=== PATIENT | male | born 1970 | race Caucasian/White ===

== ENCOUNTER 2017-07-19 09:02 | Emergency (ER) | payer OTHER ==
[2017-07-19 09:23] VITALS: RESP 18
[2017-07-19] MEDS ORDERED: SODIUM CHLORIDE 0.9% 500 ML IV STA (09:33)
--- NOTE | 2017-07-19 09:44 | ED ---
Abdominal Pain HPI - General Chief Complaint: Abdominal Pain Stated Complaint: RUQ PAIN Time Seen by Provider: 07/19/17 09:25 Source: patient, RN notes reviewed Mode of arrival: ambulatory Limitations: no limitations - History of Present Illness Initial Comments: 47-year-old male presents emergency department to complaint of right quadrant abdominal pain. Patient states pain started a few days ago has been intermittent started feeling better but states that he ate a chicken salad last night and the pain worsened. Patient states that is from his right upper quadrant to his right flank region. He has no history kidney stones no prior gallbladder disease. Patient does admit to alcohol drinking. Patient denies fever, chills. No dysuria no hematuria no melena med she is a. - Related Data Previous Rx's Medication Instructions Recorded Acetaminophen-Codeine 300-30mg 1 tab PO Q4H PRN #20 tablet 07/19/17 [Tylenol #3] Allergies Allergy/AdvReac Type Severity Reaction Status Date / Time Penicillins Allergy Rash/Hives Verified 07/19/17 09:58 Review of Systems ROS Statement: Those systems with pertinent positive or pertinent negative responses have been documented in the HPI. ROS Other: All systems not noted in ROS Statement are negative. Past Medical History Past Medical History: No Reported History History of Any Multi-Drug Resistant Organisms: None Reported Past Surgical History: Appendectomy Past Psychological History: No Psychological Hx Reported Smoking Status: Current every day smoker Past Alcohol Use History: Daily Past Drug Use History: None Reported General Exam Limitations: no limitations General appearance: alert, in no apparent distress Head exam: Present: atraumatic, normocephalic, normal inspection Eye exam: Present: normal appearance, PERRL, EOMI. Absent: scleral icterus, conjunctival injection, periorbital swelling Respiratory exam: Present: normal lung sounds bilaterally. Absent: respiratory distress, wheezes, rales, rhonchi, stridor Cardiovascular Exam: Present: regular rate, normal rhythm, normal heart sounds. Absent: systolic murmur, diastolic murmur, rubs, gallop, clicks GI/Abdominal exam: Present: soft, tenderness (Mild tenderness right upper quadrant), normal bowel sounds. Absent: distended, guarding, rebound, rigid Back exam: Absent: CVA tenderness (R), CVA tenderness (L) Course Vital Signs 07/19/17 09:20 Temperature 98.2 F Pulse Rate 75 Respiratory 18 Rate Blood Pressure 158/96 O2 Sat by Pulse 98 Oximetry Medical Decision Making - Medical Decision Making 47-year-old male present emergency department for right upper quadrant pain. Patient's been having some pain after eating certain foods. Patient's lab work , ultrasound unremarkable. Patient may be some biliary dyskinesia. Patient will follow palpation with surgeon for her scan return parameters were discussed. - Lab Data Result diagrams: 07/19/17 10:00 07/19/17 10:00 Lab Results 07/19/17 07/19/17 07/19/17 Range/Units 10:00 10:00 10:00 WBC 6.8 (3.8-10.6) k/uL RBC 5.43 (4.30-5.90) m/uL Hgb 17.4 (13.0-17.5) gm/dL Hct 47.7 (39.0-53.0) % MCV 87.9 (80.0-100.0) fL MCH 32.0 (25.0-35.0) pg MCHC 36.4 (31.0-37.0) g/dL RDW 12.7 (11.5-15.5) % Plt Count 212 (150-450) k/uL Neutrophils % 69 % Lymphocytes % 17 % Monocytes % 7 % Eosinophils % 4 % Basophils % 1 % Neutrophils # 4.7 (1.3-7.7) k/uL Lymphocytes # 1.2 (1.0-4.8) k/uL Monocytes # 0.5 (0-1.0) k/uL Eosinophils # 0.3 (0-0.7) k/uL Basophils # 0.1 (0-0.2) k/uL Sodium 143 (137-145) mmol/L Potassium 4.5 (3.5-5.1) mmol/L Chloride 103 (98-107) mmol/L Carbon Dioxide 26 (22-30) mmol/L Anion Gap 14 mmol/L BUN 20 (9-20) mg/dL Creatinine 0.82 (0.66-1.25) mg/dL Est GFR (CKD-EPI)AfAm >90 (>60 ml/min/1.73 sqM) Est GFR (CKD-EPI)NonAf >90 (>60 ml/min/1.73 sqM) Glucose 88 (74-99) mg/dL Calcium 9.7 (8.4-10.2) mg/dL Total Bilirubin 0.6 (0.2-1.3) mg/dL AST 43 (17-59) U/L ALT 77 H (21-72) U/L Alkaline Phosphatase 102 (38-126) U/L Total Protein 7.4 (6.3-8.2) g/dL Albumin 4.4 (3.5-5.0) g/dL Amylase 61 (30-110) U/L Lipase 107 (23-300) U/L Urine Color Yellow Urine Appearance Clear (Clear) Urine pH 5.5 (5.0-8.0) Ur Specific [place] 1.008 (1.001-1.035) Urine Protein Negative (Negative) Urine Glucose (UA) Negative (Negative) Urine Ketones Negative (Negative) Urine Blood Trace H (Negative) Urine Nitrite Negative (Negative) Urine Bilirubin Negative (Negative) Urine Urobilinogen <2.0 (<2.0) mg/dL Ur Leukocyte Esterase Negative (Negative) Urine RBC <1 (0-5) /hpf Urine WBC <1 (0-5) /hpf Urine Mucus Rare H (None) /hpf Disposition Clinical Impression: Right upper quadrant abdominal pain Disposition: HOME SELF-CARE Condition: Stable Instructions: Abdominal Pain (ED) Additional Instructions: Follow up outpatient for HIDA scan.Please return to the Emergency Department if symptoms worsen or any other concerns. Prescriptions: Acetaminophen-Codeine 300-30mg [Tylenol #3] 1 tab PO Q4H PRN #20 tablet PRN Reason: pain Referrals: Chemo Segura Jr, DO [Primary Care Provider] - 1-2 days Pranay Garcia MD [STAFF PHYSICIAN] - 1-2 days Time of Disposition: 11:24
[2017-07-19 10:15] LABS: Basophils # (A) 0.1 k/uL (0-0.2); Basophils % (A) 1 %; Eosinophils # (A) 0.3 k/uL (0-0.7); Eosinophils % (A) 4 %; HCT 47.7 % (39.0-53.0); HGB 17.4 gm/dL (13.0-17.5); Lymphocytes # (A) 1.2 k/uL (1.0-4.8); Lymphocytes % (A) 17 %; MCHC 36.4 g/dL (31.0-37.0); MCV 87.9 fL (80.0-100.0); Mean Platelet Volume 7.3; Monocytes # (A) 0.5 k/uL (0-1.0); Monocytes % (A) 7 %; Neutrophils # (A) 4.7 k/uL (1.3-7.7); Neutrophils % (A) 69 %; Platelet Count 212 k/uL (150-450); RBC 5.43 m/uL (4.30-5.90); RDW 12.7 % (11.5-15.5); WBC 6.8 k/uL (3.8-10.6)
[2017-07-19 10:26] LABS: ALT 77 U/L (21-72); AST 43 U/L (17-59); Albumin 4.4 g/dL (3.5-5.0); Alkaline Phosphatase 102 U/L (38-126); Amylase 61 U/L (30-110); Anion Gap 14 mmol/L; Blood Urea Nitrogen 20 mg/dL (9-20); Calcium 9.7 mg/dL (8.4-10.2); Carbon Dioxide 26 mmol/L (22-30); Chloride 103 mmol/L (98-107); Glucose 88 mg/dL (74-99); Lipase 107 U/L (23-300); Potassium 4.5 mmol/L (3.5-5.1); Sodium 143 mmol/L (137-145); Total Bilirubin 0.6 mg/dL (0.2-1.3); Total Protein 7.4 g/dL (6.3-8.2)
[2017-07-19 10:31] LABS: Appearance,Urine Clear (Clear); Bilirubin,Urine Negative (Negative); Blood,Urine Trace (Negative); Color,Urine Yellow; Glucose,Urine (UA) Negative (Negative); Ketones,Urine Negative (Negative); Leukocyte Esterase,Urine Negative (Negative); Mucus,Urine Rare /hpf; Nitrite,Urine Negative (Negative); PH, Urine 5.5 (5.0-8.0); Protein,Urine Negative (Negative); RBC,Urine <1 /hpf (0-5); Specific Gravity,Urine 1.008 (1.001-1.035); Urobilinogen,Urine <2.0 mg/dL (<2.0); WBC,Urine <1 /hpf (0-5)
--- NOTE | 2017-07-19 11:19 | US ---
EXAMINATION TYPE: US abdomen limited DATE OF EXAM: 07/19/2017 COMPARISON: NONE CLINICAL HISTORY: Pain. RUQ Pain. Patient states being NPO EXAM MEASUREMENTS: Liver Length: 18.0 cm Gallbladder Wall: 0.2 cm CHD: 0.4 cm Right Kidney: 10.2 x 5.3 x 5.8 cm Limited exam due to overlying bowel gas Pancreas: Obscured by bowel gas Liver: Appears enlarged in size. Appears heterogenous and slightly echogenic. Gallbladder: wnl Evidence for sonographic Lamb's sign: wnl CBD: Obscured by overlying bowel gas CHD: wnl Right Kidney: wnl Pancreas is obscured by overlying bowel gas on initial images. Liver is heterogeneously hyperechoic. No worrisome intrahepatic ductal dilatation is seen. Finding likely on basis of diffuse fatty infiltr ation. Evaluation for focal masses suboptimal due to the heterogeneity. IMPRESSION: No gallstones or ultrasound evidence for acute cholecystitis. Probable fatty infiltration of liver noted.
[2017-07-19 12:02] VITALS: BP 146/82; PULSE 65; TEMP 97
== END 2017-07-19 12:02 | disposition home or self-care (01) ==
LOC: EC 09:02
DX: R10.11 Right upper quadrant pain (principal); F17.200 Nicotine dependence, unspecified, uncomplicated; Z88.0 Allergy status to penicillin; Z90.49 Acquired absence of other specified parts of digestive tract
CPT/HCPCS: 36415; 76705; 80053; 81001; 82150; 83690; 85025; 96360; 96361; 99284

== ENCOUNTER 2023-11-20 18:27 | Emergency (ER) | payer BC, OTHER ==
[2023-11-20] MEDS: HYDROmorphone 0.5 MG/0.5 ML SYRINGE IM STA (19:02)
--- NOTE | 2023-11-20 19:05 | XR ---
EXAMINATION TYPE: XR wrist complete RT DATE OF EXAM: 11/20/2023 6:59 PM CLINICAL INDICATION:Male, 53 years old with history of FOOSH; PHH COMPARISON: TECHNIQUE: XR wrist complete RT; examined in the Frontal, navicular, lateral, and oblique. FINDINGS: The distal radial metaphysis dorsally elation fractures. Displaced ulnar styloid process fr acture. So-called Colles' fracture. Joint dislocation, or joint effusion. No evidence of any soft ti ssue swelling is seen. IMPRESSION: Colles' fracture distal radius and ulna styloid process
[2023-11-20] MEDS: KETOROLAC 15 MG/ML 1 ML VIAL IM STA (19:22)
[2023-11-20] MEDS: IBUPROFEN 800 MG TAB PO STA (19:27)
--- NOTE | 2023-11-20 20:32 | ED ---
Upper Extremity HPI - General Chief Complaint: Extremity Injury, Upper Stated Complaint: Possible broken rt wrist Time Seen by Provider: 11/20/23 18:31 Source: patient Mode of arrival: ambulatory Limitations: no limitations - History of Present Illness Initial Comments: 53-year-old male presenting with chief complaint of right wrist pain. Pain started after a fall. Limited range of motion. No loss of sensation. Patient is able to move the fingers however it is painful. - Related Data Previous Rx's Medication Instructions Recorded Acetaminophen-Codeine 300-30mg 1 tab PO Q4H PRN #20 tablet 07/19/17 [Tylenol #3] Hydrocodone/Acetaminophen 1 tab PO Q8H 3 Days #9 tab 11/20/23 [Hydrocodone/Acetaminophen 7.5-325] HYDROcodone/APAP 7.5-325MG [[place] 1 tab PO Q6HR PRN 3 Days #12 tab 11/21/23 7.5-325] Allergies Allergy/AdvReac Type Severity Reaction Status Date / Time Penicillins Allergy Rash/Hives Verified 11/20/23 18:31 Review of Systems ROS Statement: Those systems with pertinent positive or pertinent negative responses have been documented in the HPI. ROS Other: All systems not noted in ROS Statement are negative. Past Medical History Past Medical History: Hypertension History of Any Multi-Drug Resistant Organisms: None Reported Past Surgical History: Appendectomy Past Psychological History: No Psychological Hx Reported Smoking Status: Former smoker Past Alcohol Use History: Daily Past Drug Use History: None Reported General Exam Limitations: no limitations General appearance: alert, in no apparent distress Head exam: Present: atraumatic, normocephalic Eye exam: Present: normal appearance Neck exam: Present: normal inspection Respiratory exam: Absent: respiratory distress Cardiovascular Exam: Present: regular rate Right Forearm Wrist exam: Present: tenderness, swelling. Absent: full ROM Vascular: Absent: vascular compromise Neurological exam: Present: alert, oriented X3 Psychiatric exam: Present: normal affect, normal mood Course Vital Signs 11/20/23 11/20/23 11/20/23 18:28 19:28 20:39 Temperature 97.8 F 98.7 F Pulse Rate 63 65 Respiratory 18 16 18 Rate Blood Pressure 146/91 120/75 144/85 O2 Sat by Pulse 97 97 99 Oximetry Medical Decision Making - Medical Decision Making Was pt. sent in by a medical professional or institution (Dr., PA, TOPOLOGY PROFESSOR, urgent care, hospital, or [facility]...) When possible be specific @ -No Did you speak to anyone other than the patient for history (EMS, parent, family, police, friend...)? What history was obtained from this source @ -No Did you review nursing and triage notes (agree or disagree)? Why? @ -I reviewed and agree with nursing and triage notes Were old charts reviewed (outside hosp., previous admission, EMS record, old EKG, old radiological studies, urgent care reports/EKG's, [facility] records)? Report findings @ -No old charts were reviewed Differential Diagnosis (chest pain, altered mental status, abdominal pain women, abdominal pain men, vaginal bleeding, weakness, fever, dyspnea, syncope, headache, dizziness, GI bleed, back pain, seizure, CVA, palpatations, mental health, musculoskeletal)? @ -Differential includes fracture, dislocation, sprain, strain, this is not an all-inclusive list EKG interpreted by me (3pts min.). @ -As above X-rays interpreted by me (1pt min.). @ -X-ray shows Colles' fracture distal radius and ulnar styloid process CT interpreted by me (1pt min.). @ -None done U/S interpreted by me (1pt. min.). @ -None done What testing was considered but not performed or refused? (CT, X-rays, U/S, labs)? Why? @ -None What meds were considered but not given or refused? Why? @ -None Did you discuss the management of the patient with other professionals (professionals i.e. SHERIN Robb, TOPOLOGY PROFESSOR, lab, RT, psych nurse, social media marketing specialist, corporate associate attorney, teacher, credit control officer, family preservation caseworker)? Give summary @ -No Was smoking cessation discussed for >3mins.? @ -No Was critical care preformed (if so, how long)? @ -No Were there social determinants of health that impacted care today? How? (Homelessness, low income, unemployed, alcoholism, drug addiction, transportation, low edu. Level, literacy, decrease access to med. care, penitentiary, rehab)? @ -No Was there de-escalation of care discussed even if they declined (Discuss DNR or withdrawal of care, Hospice)? DNR status @ -No What co-morbidities impacted this encounter? (DM, HTN, Smoking, COPD, CAD, Cancer, CVA, ARF, Chemo, Hep., AIDS, mental health diagnosis, sleep apnea, morbid obesity)? @ -None Was patient admitted / discharged? Hospital course, mention meds given and route, prescriptions, significant lab abnormalities, going to OR and other pertinent info. @ -53-year-old male present with chief complaint of right wrist pain. X-rays positive for Colles' fracture as well as fracture of the ulna styloid process. Patient is placed in a sugar-tong splint and will follow-up with orthopedics. He is neurovascularly intact. Follow-up with PCP. Report back to ER with any new or worsening symptoms. Discussed return parameters and answered all questions. Patient conveyed verbal understanding and agreed to the plan. I discussed this case in detail with my attending Dr. Keith Undiagnosed new problem with uncertain prognosis? @ -No Drug Therapy requiring intensive monitoring for toxicity (Heparin, Nitro, Insulin, Cardizem)? @ -No Were any procedures done? @ -Splint applied Diagnosis/symptom? @ -Colles' fracture Acute, or Chronic, or Acute on Chronic? @ -Acute Uncomplicated (without systemic symptoms) or Complicated (systemic symptoms)? @ -Uncomplicated Side effects of treatment? @ -No Exacerbation, Progression, or Severe Exacerbation? @ -No Poses a threat to life or bodily function? How? (Chest pain, [place], [place], pneumonia, PE, COPD, DKA, ARF, appy, cholecystitis, CVA, Diverticulitis, Homicidal, Suicidal, threat to staff... and all critical care pts) @ -No Disposition Clinical Impression: Colles' fracture Disposition: HOME SELF-CARE Condition: Good Instructions (If sedation given, give patient instructions): Wrist Fracture in Adults (ED) Additional Instructions: Follow-up with orthopedics. Report back to ER with any new or worsening symptoms. Prescriptions: Hydrocodone/Acetaminophen [Hydrocodone/Acetaminophen 7.5-325] 1 tab PO Q8H 3 Days #9 tab HYDROcodone/APAP 7.5-325MG [[place] 7.5-325] 1 tab PO Q6HR PRN 3 Days #12 tab PRN Reason: Pain Is patient prescribed a controlled substance at d/c from ED?: Yes When asked, does pt state using other controlled substances?: No If prescribed controlled substance>3 days was MAPS reviewed?: Prescribed <3 Days If opioid is for acute pain is fill amount 7 days or less?: Yes Referrals: Chemo Segura Jr, [Primary Care Provider] - 1-2 days Time of Disposition: 20:32
[2023-11-20] MEDS: ACET/COD 300 MG/30 MG STARTER PACK 6 TAB BTL PO STA (20:36)
[2023-11-20] MEDS: ONDANSETRON 4 MG ODT STARTER PACK 2 TAB BTL PO STA (20:37)
[2023-11-20 20:40] VITALS: BP 144/85; PULSE 65; RESP 18; TEMP 98.7
== END 2023-11-20 20:40 | disposition home or self-care (01) ==
LOC: EC 18:27
DX: S52.531A Colles' fracture of right radius, initial encounter for closed fracture (principal); S52.611A Displaced fracture of right ulna styloid process, initial encounter for closed fracture; Z88.0 Allergy status to penicillin; Z87.891 Personal history of nicotine dependence; W19.XXXA Unspecified fall, initial encounter
CPT/HCPCS: 73110; 29125; 99283; 96372; S0119; J1170

== ENCOUNTER → 2023-11-23 | Outpatient (CLI) | payer BC ==
--- NOTE | 2023-11-23 16:04 | CT ---
EXAMINATION TYPE: CT wrist RT wo con DATE OF EXAM: 11/23/2023 COMPARISON: Radiographs 11/20/2023 HISTORY: 53-year-old male FOOSH injury, pain, Pre-surgical planning TECHNIQUE: Contiguous axial scanning of the right wrist without IV contrast. Coronal and sagittal rec onstructions performed. 3-D reconstructions generated on a dedicated independent workstation. CT DLP: 111.2 mGycm Automated exposure control for dose reduction was used. FINDINGS: There is a comminuted and impacted fracture of the distal radial metaphysis and epiphysis with overal l slight dorsal angulation. Impaction measuring up to 7 mm. The radial styloid process fracture fragm ent shows radial displacement of the 4 mm. Fracture extends into the radiocarpal joint and distal rad ial ulnar joint. There is a 3 mm step-off at the distal radioulnar joint but no significant step-off at the wrist joint. However, the mild regional displacement results in disruption of the articular murphy rface measuring 5 mm AP and 1.5 cm wide (sagittal image 36 and coronal image 31). Displaced fracture fragment of the ulnar styloid process also noted. Generalized soft tissue swelling. Overlying fiberglass cast. IMPRESSION: 1. COMMINUTED FRACTURED DISTAL RADIAL METAPHYSIS AND EPIPHYSIS WITH OVERALL SLIGHT DORSAL ANGULATION AND IMPACTION MEASURING UP TO 7 MM. 2. INTRA-ARTICULAR EXTENSION INTO THE RADIOCARPAL JOINT AND ALSO INTO THE DISTAL RADIOULNAR JOINT WHE RE THERE IS A 3 MM ARTICULAR SURFACE STEP-OFF. 3. THE MILD RESIDUAL DISPLACEMENT RESULTS IN DISRUPTION OF THE RADIAL ARTICULAR SURFACE MEASURING 5 M M AP AND 1.5 CM WIDE (SAGITTAL IMAGE 36 AND CORONAL IMAGE 31). 4. DISPLACED FRACTURE FRAGMENT OF THE ULNAR STYLOID PROCESS.
== END | disposition home or self-care (01) ==
LOC: RADCTMAIN 15:24
PROVIDERS: ATTEND Orthopaedic Surgery Hand Surgery
DX: S52.571A Other intraarticular fracture of lower end of right radius, initial encounter for closed fracture (principal); S52.611A Displaced fracture of right ulna styloid process, initial encounter for closed fracture; Z01.818 Encounter for other preprocedural examination

== ENCOUNTER 2024-05-13 13:50 | Emergency (ER) | payer BC ==
--- NOTE | 2024-05-13 14:14 | ED ---
Lower Extremity Injury HPI - General Chief Complaint: Extremity Injury, Lower Stated Complaint: L LOWER LEG INJ Time Seen by Provider: 05/13/24 13:55 Source: patient, RN notes reviewed Mode of arrival: ambulatory Limitations: no limitations - History of Present Illness Initial Comments: This is a 53-year-old male who presents to the emergency department for a left leg injury. Patient hit his left leg on a shopping cart earlier today, causing a wound to his left pena. States that he wanted to see if he needed an x-ray. He does have a small abrasion. States that his tetanus vaccine is up-to-date. Pain is controlled and he denies any difficulty with ambulation. - Related Data Previous Rx's Medication Instructions Recorded Acetaminophen-Codeine 300-30mg 1 tab PO Q4H PRN #20 tablet 07/19/17 [Tylenol #3] Hydrocodone/Acetaminophen 1 tab PO Q8H 3 Days #9 tab 11/20/23 [Hydrocodone/Acetaminophen 7.5-325] HYDROcodone/APAP 7.5-325MG [[place] 1 tab PO Q6HR PRN 3 Days #12 tab 11/21/23 7.5-325] Allergies Allergy/AdvReac Type Severity Reaction Status Date / Time Penicillins Allergy Rash/Hives Verified 11/20/23 18:31 Review of Systems ROS Statement: Those systems with pertinent positive or pertinent negative responses have been documented in the HPI. ROS Other: All systems not noted in ROS Statement are negative. Past Medical History Past Medical History: Hypertension History of Any Multi-Drug Resistant Organisms: None Reported Past Surgical History: Appendectomy, Orthopedic Surgery Past Psychological History: No Psychological Hx Reported Smoking Status: Former smoker Past Alcohol Use History: Daily Past Drug Use History: None Reported General Exam Limitations: no limitations General appearance: alert, in no apparent distress Head exam: Present: atraumatic, normocephalic, normal inspection Respiratory exam: Present: normal lung sounds bilaterally. Absent: respiratory distress, wheezes, rales, rhonchi, stridor Cardiovascular Exam: Present: regular rate, normal rhythm, normal heart sounds. Absent: systolic murmur, diastolic murmur, rubs, gallop, clicks Extremities exam: Present: other (Superficial abrasion over the left pena. No active bleeding) Neurological exam: Present: alert, oriented X3, CN II-XII intact Psychiatric exam: Present: normal affect, normal mood Course Vital Signs 05/13/24 05/13/24 13:52 15:21 Temperature 97.9 F 98.1 F Pulse Rate 89 76 Respiratory 16 18 Rate Blood Pressure 160/102 156/90 O2 Sat by Pulse 96 97 Oximetry Medical Decision Making - Medical Decision Making This is a 53 year old male who presents to the emergency department for a left leg injury. Was pt. sent in by a medical professional or institution? @ -No Did you speak to anyone other than the patient for history? @ -No Did you review nursing and triage notes? @ -Yes, and I agree, it is accurate with regards to the patient's symptoms. Were old charts reviewed? @ -No Differential Diagnosis? @ -Differential Musculoskeletal Muscular strain, contusion, ligament sprain, fracture, arthritis, septic arthritis, bursitis, cellulitis, muscle spasm, nerve compression, DVT, arterial occlusion, herpes zoster, electrolyte abnormality, tumor.... This is not meant to be in all inclusive list. EKG interpreted by me (3pts min.)? @ -Not obtained X-rays interpreted by me (1pt min.)? @ -X-ray of the left tib-fib obtained. My interpretation identifies no acute fractures. CT interpreted by me (1pt min.)? @ -Not obtained U/S interpreted by me (1pt. min.)? @ -Not obtained What testing was considered but not performed? (CT, X-rays, U/S, labs)? Why? @ -None What meds were considered but not given? Why? @ -None Did you discuss the management of the patient with other professionals? @ -No Did you reconcile home meds? @ -No Was smoking cessation discussed for >3mins.? @ -I discussed smoking cessation for greater than 3 minutes. The risk of smoking were discussed with the patient including but not limited to risks of cancer, stroke, coronary artery disease and COPD. Also discussed with patient were multiple methods of quitting smoking. Lastly we discussed the financial cost of smoking. Was critical care preformed (if so, how long)? @ -No Were there social determinants of health that impacted care today? How? (Homelessness, low income, unemployed, alcoholism, drug addiction, transportation, low edu. Level, literacy, decrease access to med. care, [facility], rehab)? @ -No Was there de-escalation of care discussed even if they declined? (Discuss DNR or withdrawal of care, Hospice)? @ -No What co-morbidities impacted this encounter? (DM, HTN, Smoking, COPD, CAD, Cancer, CVA, Hep., AIDS, mental health diagnosis, sleep apnea, morbid obesity)? @ -Smoking Was patient admitted / discharged? @ -Discharged. X-ray of the left tib-fib obtained revealing no acute process. Tetanus vaccine is already up-to-date. Advised ibuprofen and Tylenol as needed for pain relief as well as ice and elevation. Patient discharged home in stable condition. Case discussed with ED attending Dr. Lopez. Return precautions reviewed in depth, the patient is instructed to return to the emergency department with any new, worsening, or concerning symptoms. Patient verbalized understanding. Undiagnosed new problem with uncertain prognosis? @ -None Drug Therapy requiring intensive monitoring for toxicity (Heparin, Nitro, Insulin, Cardizem)? @ -None Were any procedures done? @ -None Diagnosis/symptom? @ -Left leg contusion Acute, or Chronic, or Acute on Chronic? @ -Acute Uncomplicated (without systemic symptoms) or Complicated (systemic symptoms)? @ -Uncomplicated Side effects of treatment? @ -None Exacerbation, Progression, or Severe Exacerbation] @ -Not applicable Poses a threat to life or bodily function? @ -No - Radiology Data Radiology results: report reviewed, image reviewed Disposition Clinical Impression: Contusion of left leg, Nicotine dependence Disposition: HOME SELF-CARE Instructions (If sedation given, give patient instructions): Contusion in Adults (ED) Additional Instructions: Return to the emergency department with any new, worsening, or concerning symptoms. Alternate with ibuprofen and Tylenol as needed for pain relief. Follow up with your primary care provider in 1-2 days. Is patient prescribed a controlled substance at d/c from ED?: No Referrals: Chemo Segura Jr, [Primary Care Provider] - 1-2 days Time of Disposition: 15:13
--- NOTE | 2024-05-13 14:55 | XR ---
EXAMINATION TYPE: XR tibia fibula LT DATE OF EXAM: 05/13/2024 2:23 PM COMPARISON: None CLINICAL INDICATION: Male, 53 years old with history of injury; PHH, pain TECHNIQUE: XR tibia fibula LT; examined in AP and lateral projections. FINDINGS: No evidence of any acute osseous pathology, joint dislocation, or soft tissue swelling is n oted. Anterior proximal tibia appears intact. IMPRESSION: No evidence of acute fracture. [facility], , 05/13/2024 2:53 PM
[2024-05-13 15:22] VITALS: BP 156/90; PULSE 76; RESP 18; TEMP 98.1
== END 2024-05-13 15:22 | disposition home or self-care (01) ==
LOC: EC 13:50
DX: S80.12XA Contusion of left lower leg, initial encounter (principal); Z87.891 Personal history of nicotine dependence; Z88.0 Allergy status to penicillin; W22.8XXA Striking against or struck by other objects, initial encounter
CPT/HCPCS: 99283; 99406

== ENCOUNTER 2024-11-22 10:04 | Day surgery (SDC) | payer BC ==
[~2024-11-22 10:04] MED LIST: LIDOCAINE 1% (10MG/ML) FOR IV START INTRADERMA PRN
[2024-11-22] MEDS: IV FLUID CONTINUATION 1,000 ML IV ONE (10:49)
[2024-11-22 10:59] VITALS: TEMP 98
[2024-11-22] MEDS: LACTATED RINGERS 1,000 ML IV SCH (11:01)
[2024-11-22] MEDS ORDERED: LIDOCAINE 1% INJ 10MG/ML (20 ML MDV) ONE (11:50)
[2024-11-22] MEDS ORDERED: PROPOFOL 10 MG/ML 20 ML VIAL IV ONE (11:50)
--- NOTE | 2024-11-22 12:21 | P.PCN ---
Date of Procedure: 11/22/24 Procedure(s) Performed: BRIEF HISTORY: Patient is a 54-year-old pleasant white male scheduled for an elective colonoscopy as a part of screening for colon cancer. PROCEDURE PERFORMED: Colonoscopy with snare polypectomy. PREOPERATIVE DIAGNOSIS: Screening for colon cancer IV sedation per Anesthesia. PROCEDURE: After informed consent was obtained, the patient, was brought into the endoscopy unit. IV sedation was administered by Anesthesia under continuous monitoring. Digital rectal examination was normal. Initially the Olympus CF-160 flexible video colonoscope was then inserted in the rectum, gradually advanced into the cecum without any difficulty. Careful examination was performed as the scope was gradually being withdrawn. Ileocecal valve and the appendiceal orifice were visualized and appeared normal. Prep was excellent. Mucosa of the cecum, appeared normal. In the ascending colon there was a 6 mm polyp that was removed by cold snare polypectomy. In the transverse colon there were 2 polyps measuring 3 mm in size removed by cold snare polypectomy. Rest of the ascending colon, transverse colon, descending colon, appeared normal. In the distal sigmoid colon there was a 1.5 cm thick pedunculated polyp removed by hot snare polypectomy. In the proximal rectum there were 2 polyps measuring 1 cm in size removed by hot snare polypectomy. Rest of the sigmoid colon, and rectum appeared normal. Retroflexion was performed in the rectum and no lesions were seen. The patient tolerated the procedure well. IMPRESSION: 6 mm ascending colon polyp status post cold snare polypectomy 3 mm x 2 transverse colon polyp status post cold snare polypectomy 1.5 cm pedunculated distal sigmoid colon polyp status post hot snare polypectomy 1 cm x 2 proximal rectal polyp status post snare polypectomy RECOMMENDATIONS: Findings of this examination were discussed with the patient as well as his family. He was advised to follow-up with the biopsy results. If the biopsy reveals adenoma he can have a repeat colonoscopy in 3 years.
[2024-11-22 12:33] VITALS: BP 156/90; PULSE 78; RESP 16
== END 2024-11-22 12:45 | disposition home or self-care (01) ==
LOC: ORWHC2ENDO 10:04
PROVIDERS: ATTEND Internal Medicine Gastroenterology
DX: Z12.11 Encounter for screening for malignant neoplasm of colon (principal); D12.2 Benign neoplasm of ascending colon; D12.3 Benign neoplasm of transverse colon; D12.5 Benign neoplasm of sigmoid colon; K62.1 Rectal polyp; I10 Essential (primary) hypertension; I49.9 Cardiac arrhythmia, unspecified; K21.9 Gastro-esophageal reflux disease without esophagitis; Z79.899 Other long term (current) drug therapy; Z87.891 Personal history of nicotine dependence; Z88.0 Allergy status to penicillin
CPT/HCPCS: 88305; 45385; J2003; J2704